=== PATIENT | female | born 1965 | race Caucasian/White ===

== ENCOUNTER 2023-09-08 21:16 | Inpatient (IN) | payer MEDICAID ==
[~2023-09-08] VITALS: Ht 175.3 cm; Wt 72.7 kg
[2023-09-08] MEDS ORDERED: iohexol 350MG/ML 100ml bottle IV ONE (21:38)
[2023-09-08 22:01] LABS: BASOPHILS # (AUTO) 0.1 X10'3 (0-0.2); BASOPHILS % (AUTO) 0.6 % (0-1); EOSINOPHILS # (AUTO) 0.3 X10'3 (0-0.9); EOSINOPHILS % (AUTO) 2.1 % (0-6); HEMATOCRIT 43.1 % (35.0-45.0); HEMOGLOBIN 14.6 g/dl (12.0-16.0); LYMPHOCYTES # (AUTO) 3.6 X10'3 (1.1-4.8); LYMPHOCYTES % (AUTO) 29.9 % (21-51); MEAN CORPUSCULAR HEMOGLOBIN 31.8 PG (27.0-31.0); MEAN CORPUSCULAR HGB CONC 33.8 g/dL (33.0-36.5); MEAN CORPUSCULAR VOLUME 93.9 FL (78-98); MEAN PLATELET VOLUME 7.2 FL (7.4-10.4); MONOCYTES % (AUTO) 8.1 % (2-12); NEUTROPHILS # (AUTO) 7.1 X10'3 (1.8-7.7); NEUTROPHILS % (AUTO) 59.3 % (42-75); PLATELET COUNT 254 X10'3 (140-440); RED BLOOD COUNT 4.59 X10'6 (4.20-5.60); RED CELL DISTRIBUTION WIDTH 13.4 % (11.5-14.5)
[2023-09-08 22:13] LABS: APTT 25 SECONDS (22-32); PROTHROMBIN TIME 10.3 SECONDS (9.0-12.0)
[2023-09-08 22:15] LABS: ALANINE AMINOTRANSFERASE 26 U/L (12-78); ALBUMIN 3.6 G/DL (3.4-5.0); ALBUMIN/GLOBULIN RATIO 1.2 (1.1-1.5); ALKALINE PHOSPHATASE 79 IU/L (46-116); ANION GAP 5 (8-16); ASPARTATE AMINO TRANSFERASE 23 U/L (10-37); BILIRUBIN,TOTAL 0.5 MG/DL (0.1-1.0); BLOOD UREA NITROGEN 19 MG/DL (7-18); BUN/CREATININE RATIO 24.1 (10.0-20.0); CHLORIDE 103 MMOL/L (99-107); CREATININE 0.79 MG/DL (0.40-0.90); GLUCOSE 106 MG/DL (70-104); POTASSIUM 3.8 MMOL/L (3.5-5.1); SODIUM 139 MMOL/L (135-145); TOTAL CARBON DIOXIDE 31.1 MMOL/L (24-32); TOTAL PROTEIN 6.7 G/DL (6.4-8.2); eCRCL 81 ML/MIN; eGFR 75 ML/MIN
[2023-09-08] MEDS ORDERED: NO HOME MEDS (22:21)
[2023-09-09 00:40] LABS: ETHANOL < 10 MG/DL (<10)
[2023-09-09 02:56] VITALS: TEMP 98.9
[2023-09-09] MEDS ORDERED: ondansetron/PF 4mg/2ml inj IV PRN (03:40)
[2023-09-09] MEDS ORDERED: metoclopramide 5 mg/ml inj IV PRN (03:40)
[2023-09-09] MEDS ORDERED: magnesium hydroxide 30ml (MOM) UD suspension PO PRN (03:40)
[2023-09-09] MEDS ORDERED: acetaminophen 325mg tablet PO PRN (03:40)
[2023-09-09] MEDS ORDERED: mag hydrox/Alum hydrox/simeth 30ml oral suspension PO PRN (03:40)
[2023-09-09] MEDS ORDERED: ondansetron 4mg rapidly disintigrating tab PO PRN (03:40)
[2023-09-09] MEDS ORDERED: acetaminophen 650mg rectal suppository RC PRN (03:40)
[2023-09-09] MEDS ORDERED: diphenhydrAMINE 25mg capsule PO PRN (03:40)
[2023-09-09] MEDS ORDERED: diphenhydrAMINE 50 mg/ml inj IV PRN (03:40)
[2023-09-09] MEDS ORDERED: bisacodyl 10mg suppository rectal RC PRN (03:40)
[2023-09-09] MEDS ORDERED: ketorolac trometh. 30mg/ml inj. IV PRN (03:45)
[2023-09-09] MEDS: normal saline 1000ml 1,000 ML IV SCH ×2 (04:21→13:36)
[2023-09-09 04:44] LABS: BILIRUBIN,URINE NEGATIVE (Neg); CLARITY,URINE CLEAR (Clear); COLOR,URINE YELLOW (Yellow); GLUCOSE, URINE NEGATIVE (Neg); KETONES,URINE TRACE mg/dl (Neg); LEUKOCYTE ESTERASE ,URINE NEGATIVE (Neg); NITRITES, URINE NEGATIVE (Neg); OCCULT BLOOD,URINE NEGATIVE (Neg); PH,URINE 6.5 (4.8-8.0); PROTEIN,URINE NEGATIVE (Neg); UROBILINOGEN,URINE 0.2 E.U/dL (0.2-1.0)
[2023-09-09 04:54] LABS: UA COLLECTION TYPE CLN CATCH MIDSTREAM
[2023-09-09 05:01] LABS: URINE AMPHETAMINE SCREEN NEGATIVE (Neg); URINE BARBITUATE SCREEN NEGATIVE (Neg); URINE BENZODIAZEPINES SCREEN NEGATIVE (Neg); URINE CANNABINOID SCREEN POSITIVE (Neg); URINE COCAINE SCREEN NEGATIVE (Neg); URINE METHADONE SCREEN NEGATIVE (Neg); URINE OPIATE SCREEN NEGATIVE (Neg); URINE PHENCYCLIDINE SCREEN NEGATIVE (Neg)
[2023-09-09] MEDS ORDERED: pantoprazole 40mg Tablet.DR PO SCH (07:30)
[2023-09-09] MEDS ORDERED: heparin, porcine 5000 units/ml vial SQ SCH (08:00)
[2023-09-09] MEDS ORDERED: docusate sod 100mg capsule PO SCH (08:00)
[2023-09-09 08:44] LABS: D-DIMER < 0.19 MG/L FEU (0-0.50)
[2023-09-09] MEDS ORDERED: ATOR20TA PO (12:55)
[2023-09-09] MEDS ORDERED: ASPI-1265 PO (12:55)
[2023-09-09] MEDS ORDERED: CLOP-32 PO (12:55)
[2023-09-09 13:18] LABS: CHOL/HDL RATIO 4.6 (0.00-4.99); CHOLESTEROL 173 MG/DL (0-200); HDL CHOLESTEROL 38 MG/DL (35-60); LDL CHOLESTEROL 118 MG/DL (50-100); TRIGLYCERIDES 80 MG/DL (20-135)
[2023-09-09 14:41] VITALS: BP 93/62; PULSE 68; RESP 16; O2SAT 97
[2023-09-09] MEDS ORDERED: temazepam 15mg capsule PO PRN (21:00)
== END 2023-09-09 14:56 | disposition home or self-care (01) | DRG 47 ==
LOC: ER 21:18 → EEVIPCON 21:18 → ED HOLD 09-09 03:42
PROVIDERS: ADMIT Family Medicine; ATTEND Internal Medicine
PROC: BW291ZZ Computerized Tomography (CT Scan) of Head and Neck using Low Osmolar Contrast (ICD-10-PCS; principal; 2023-09-08)
DX: G45.9 Transient cerebral ischemic attack, unspecified (principal); F43.10 Post-traumatic stress disorder, unspecified; G43.109 Migraine with aura, not intractable, without status migrainosus; F84.0 Autistic disorder; J44.9 Chronic obstructive pulmonary disease, unspecified; Z72.0 Tobacco use; Z79.899 Other long term (current) drug therapy
CPT/HCPCS: 36415; 70450; 70496; 70498; 70551; 71045; 80053; 80061; 80305; 80320; 81003; 82948; 85025; 85379; 85610; 85651; 85730; 86885; 93005; 99285; G0378; J1200; J1644; J1885; J2765; J3490; J7030; Q9967